=== PATIENT | male | born 1945 | race Caucasian/White ===

== ENCOUNTER 2019-05-30 07:59 | Day surgery (SDC) | payer MEDICARE, BC ==
[2019-05-30] VITALS (14 sets, daily range): BP systolic 95–117; BP diastolic 53–82; PULSE 64–74; TEMP 98–98.3
[~2019-05-30] VITALS: Ht 180.3 cm; Wt 115.2 kg
[~2019-05-30 07:59] MED LIST: ALDACTONE 25MG25 M1 PO; ASPIRIN E.C. 8181 MG PO; COREG 3.123.125 MG/T PO; COREG 6.256.25 MG/TA PO; HUMULIN R 10100 U/ML SQ; LANTUS100 U/ML SQ; LIPITOR 40MG TA40 MG PO; OMEGA-3 FISH1000 MG PO; PRINIVIL2.5 MG PO; RT ADVAIR 128 DISKUS IH
[2019-05-30 08:41] LABS: HEMATOCRIT 39.9 % (42.0-52.0); HEMOGLOBIN 13.2 g/dl (13.5-18.0); MEAN CELL VOLUME 99 fl (80.0-100.0); MEAN CORPUSCULAR HEMOGLOBIN 33 pg (27.0-31.0); MEAN CORPUSCULAR HGB CONC 33 g/dl (33.0-37.0); MEAN PLATELET VOLUME 9.6 fl (7.4-10.4); PLATELET COUNT 120 K/mm3 (130-400); RED BLOOD COUNT 4.02 M/mm3 (4.20-5.60); REDCELL DISTRIBUTION WIDTH-CV 15.4 % (11.5-14.5)
[2019-05-30 08:51] LABS: INR 1.3 (0.8-3.0); PROTHROMBIN TIME 15.4 SECONDS (9.7-12.8)
[2019-05-30 08:53] LABS: PARTIAL THROMBOPLASTIN TIME 34.7 SECONDS (26.0-37.0)
[2019-05-30 08:54] LABS: CREATININE, serum 1.01 (0.66-1.25); POTASSIUM 4.6 mmol/L (3.4-5.0)
[2019-05-30] MEDS ORDERED: DEMADEX 20MG20 M1 PO ×2 (09:03→11:18)
[2019-05-30] MEDS ORDERED: TYLENOL 500MG500 MG PO (09:04)
[2019-05-30] MEDS ORDERED: HUMALOG PEN100 U/ML SQ (09:17)
[2019-05-30] MEDS ORDERED: LANTUS SOLOS100 U/ML SQ (09:18)
[2019-05-30] MEDS ORDERED: COZAAR 25MG25 MG/TAB PO (09:19)
[2019-05-30] MEDS ORDERED: K-DUR20 MEQ PO (09:20)
[2019-05-30] MEDS ORDERED: ZADITOR 5 ML5 ML OP (09:32)
--- NOTE | 2019-05-30 10:04 | NUR ---
SEE MERGE REPORT FOR MEDICATION ADMINISTRATION TIMES WELL INTRA/POST SEDATION ASSESSMENTS.
--- NOTE | 2019-05-30 10:52 | NUR ---
Initial visit; Patient and his thanked Library Technology Instructor for offering encouragement and prayer prior to patient's surgical procedure.
[2019-05-30] MEDS ORDERED: ZEBETA 5MG5 MG PO ×3 (11:18→11:23)
--- NOTE | 2019-05-30 11:45 | NUR ---
Pt returned to [facility] 12 per bed s/p heart cath. Pt resting well, family at bedside.
--- NOTE | 2019-05-30 14:15 | NUR ---
Pt has voided 700 mL yellow urine and va PO intake s n/v.
[2019-05-30] MEDS ORDERED: ZITHROMAX Z PA250 MG PO (16:14)
--- NOTE | 2019-05-30 16:45 | NUR ---
Slight oozing noted on R groin dressing. Edges marked and report given to Spencer Sanders RN how assumed care at this time.
--- NOTE | 2019-05-30 17:55 | NUR ---
VSS. INT discontinued intact. Ambulated with steady gait.
--- NOTE | 2019-05-30 18:15 | NUR ---
Discharge instructions given. Transferred to private car by corie
== END 2019-05-30 18:15 | disposition home or self-care (01) ==
LOC: COL.CAR 07:59
PROVIDERS: Internal Medicine Cardiovascular Disease
DX: I25.110 Atherosclerotic heart disease of native coronary artery with unstable angina pectoris (principal); R94.39 Abnormal result of other cardiovascular function study; I25.5 Ischemic cardiomyopathy; I11.0 Hypertensive heart disease with heart failure; I50.22 Chronic systolic (congestive) heart failure; I47.2 Ventricular tachycardia; E11.9 Type 2 diabetes mellitus without complications; E78.2 Mixed hyperlipidemia; I48.0 Paroxysmal atrial fibrillation; Z88.0 Allergy status to penicillin; Z79.82 Long term (current) use of aspirin; Z79.4 Long term (current) use of insulin; Z87.891 Personal history of nicotine dependence; Z82.49 Family history of ischemic heart disease and other diseases of the circulatory system; Z80.9 Family history of malignant neoplasm, unspecified; Z95.1 Presence of aortocoronary bypass graft
CPT/HCPCS: C1760; C1769; C1894; J1644; J1940; J2250; J3010

== ENCOUNTER 2020-01-17 09:54 | Day surgery (SDC) | payer MEDICARE, BC ==
[~2020-01-17] VITALS: Ht 177.8 cm; Wt 106.0 kg
[~2020-01-17 09:54] MED LIST changes: +COZAAR 25MG25 MG/TAB PO; +DEMADEX 20MG20 M1 PO; +HUMALOG PEN100 U/ML SQ; +K-DUR20 MEQ PO; +LANTUS SOLOS100 U/ML SQ; +TYLENOL 500MG500 MG PO; +ZADITOR 5 ML5 ML OP; +ZEBETA 5MG5 MG PO; +ZITHROMAX Z PA250 MG PO
[2020-01-17 10:14] VITALS: BP 110/73; PULSE 80; TEMP 97.7
[2020-01-17] MEDS ORDERED: ZYLOPRIM 300MG300 MG PO (10:19)
[2020-01-17] MEDS ORDERED: DEMADEX 20MG20 M1 PO (10:20)
[2020-01-17] MEDS ORDERED: ALLEGRA 180MG180 MG PO (10:21)
[2020-01-17] MEDS ORDERED: ZEBETA 5MG5 MG PO (10:21)
[2020-01-17] MEDS ORDERED: HUMALOG PEN100 U/ML SQ (10:46)
[2020-01-17 13:27] VITALS: BP 97/57; PULSE 68; TEMP 97.3
--- NOTE | 2020-01-17 13:27 | NUR ---
The patient arrived back to [place] [facility] from the operating room at this time. The patient appears alert and oriented and denies any pain or nausea at this time. Vital signs were started at this time. Call light is within reach. is at his bedside at this time. The patient has two incisions were are covered with burger set and appear without redness or edema. The patient denies wanting anything to eat or drink at this time. Will continue to monitor the patient.
[2020-01-17 13:42] VITALS: BP 83/48; PULSE 59
--- NOTE | 2020-01-17 13:42 | NUR ---
The patient's blood sugar was rechecked with a result of 183. The patient appears alert and continues to deny any pain or nausea at this time. The patient requests to try some orange juice at this time. remains at his beside. Will continue to monitor the patient.
[2020-01-17 13:57] VITALS: BP 95/50; PULSE 59
--- NOTE | 2020-01-17 13:57 | NUR ---
The patient appeared to tolerate the orange juice well and denies wanting anything further to eat or drink at this time. The patient's vital signs appear stable. Will continue to monitor the patient.
[2020-01-17 14:12] VITALS: BP 91/56; PULSE 60
--- NOTE | 2020-01-17 14:12 | NUR ---
Discharge instructions were reviewed with the patient and his at this time. They both verbalized understanding and have no questions for the nurse at this time. The patient's IV to his left hand was removed and a pressure dressing was applied to the site. The nurse instructed the patient to get dressed and notify the staff when he is ready to be escorted out.
--- NOTE | 2020-01-17 14:25 | NUR ---
The patient was escorted out via wheelchair to a private vehicle by DICK Zavala. The patient's belongings and discharge paperwork were sent with him. The patient's is present to drive him home.
[2020-01-19] MEDS ORDERED: ALDACTONE 25MG25 M1 PO (13:11)
[2020-01-19] MEDS ORDERED: PREDNISONE20 MG PO ×2 (13:20→13:22)
== END 2020-01-17 14:25 | disposition home or self-care (01) ==
LOC: SDCO 09:54
DX: C85.98 Non-Hodgkin lymphoma, unspecified, lymph nodes of multiple sites (principal); I10 Essential (primary) hypertension; E11.9 Type 2 diabetes mellitus without complications; Z79.82 Long term (current) use of aspirin; Z79.891 Long term (current) use of opiate analgesic; Z79.51 Long term (current) use of inhaled steroids; Z79.4 Long term (current) use of insulin; Z80.0 Family history of malignant neoplasm of digestive organs; Z87.891 Personal history of nicotine dependence; Z88.0 Allergy status to penicillin; Z88.1 Allergy status to other antibiotic agents; Z11.59 Encounter for screening for other viral diseases
CPT/HCPCS: C1788; J0690; J1644; J2405; J2704; J3010; J7030

== ENCOUNTER → 2020-01-24 | Outpatient (CLI) | payer MEDICARE, BC ==
--- NOTE | 2020-01-23 14:08 | NUR ---
INSTRUCTED TO ONLY TAKEN THE [place] IN AM AND 4 UNITS OF HUMALOG IF BS >200, (THAT IS A 1/2 DOSE). HE CAN TAKEN THE REST OF HIS MEDS AFTER HE GETS HOME.
[2020-01-24] VITALS (7 sets, daily range): BP systolic 74–128; BP diastolic 31–76; PULSE 71–84
[~2020-01-24] VITALS: Ht 180.3 cm; Wt 104.0 kg
[~2020-01-24] MED LIST changes: +ALLEGRA 180MG180 MG PO; +PREDNISONE20 MG PO; +ZYLOPRIM 300MG300 MG PO
[2020-01-24 12:24] LABS: CSF APPEARANCE CLEAR; CSF COLOR COLORLESS; CSF MONONUCLEAR 63 % (70-100); CSF POLYMORPHONUCLEAR 37 % (0-6); CSF RBC 760 /mm3 (0-0)
== END ==
LOC: COL.RAD 01-23 09:15
PROVIDERS: Internal Medicine
DX: C83.39 Diffuse large B-cell lymphoma, extranodal and solid organ sites (principal); Z92.21 Personal history of antineoplastic chemotherapy
CPT/HCPCS: J9260

== ENCOUNTER 2020-01-26 12:09 | Inpatient (IN) | payer MEDICARE, BC ==
[~2020-01-26] VITALS: Ht 177.8 cm; Wt 106.8 kg
[2020-01-26] VITALS (256 sets, daily range): BP systolic 64–137; BP diastolic 38–126; PULSE 92–116; TEMP 98.5–101; O2SAT 53–100
[2020-01-26 13:51] LABS: HEMATOCRIT 37.9 % (42.0-52.0); HEMOGLOBIN 13.3 g/dl (13.5-18.0); MEAN CELL VOLUME 93 fl (80.0-100.0); MEAN CORPUSCULAR HEMOGLOBIN 33 pg (27.0-31.0); MEAN CORPUSCULAR HGB CONC 35 g/dl (33.0-37.0); MEAN PLATELET VOLUME 11.2 fl (7.4-10.4); RED BLOOD COUNT 4.06 M/mm3 (4.20-5.60); REDCELL DISTRIBUTION WIDTH-CV 14.4 % (11.5-14.5)
[2020-01-26 13:52] LABS: ALBUMIN 3.6 gm/dL (3.5-5.0); BILIRUBIN,TOTAL 3.7 mg/dL (0.0-1.0); CALCIUM 8.8 mg/dL (8.4-10.2); TOTAL PROTEIN 6.7 gm/dL (6.4-8.2)
[2020-01-26 14:38] LABS: PLATELET COUNT 38 K/mm3 (130-400)
[2020-01-26 14:44] LABS: EOSINOPHIL 20 % (0-4)
[2020-01-26 14:45] LABS: LYMPHOCYTE 80 % (20.0-51.0); PLATELET ESTIMATE DECREASED (NORMAL)
--- NOTE | 2020-01-26 16:00 | NUR ---
Upon arrival, pt AAOx4, appearing in good health for age with no complaints or symptoms. States "they took my temperature at the cancer center and everyone then got all excited and sent me to the ER. I feel fine, my blood pressure has been low my entire life". Call light in reach. Pt tolerting PO without difficulty Pt arrived with Levophed infusing to right antecubital IV, gtt switched to Red port on PICC line after placement confirmation by DICK Alejandra - [facility] site without complications
--- NOTE | 2020-01-26 18:19 | NUR ---
Vancomycin Initial Dosing Pharmacy Note Ordering provider: Adina Morin MD Indication/duration: neutropenic fever, septic shock Relevant comorbidities: lymphoma, DM LABS: WBC 0.2, TMax 101, SCr 1.0, CrCl 66 Recommendation: vancomycin 15 mg/kg Loading dose: 1.75 grams (given in ED) Maintenance dose: 1.5 grams every 12 hours Trough goal: 15-20 ug/mL. trough 7/ @ 1430
--- NOTE | 2020-01-26 20:00 | NUR ---
PATIENT DENIES DISCOMFORT WILL OCCASIONALLY FALL ASLEEP, WHEN LEFT ALONE, B/P CORRESPONDS BY BEING HYPOTENSIVE, MEDS ADMINISTERED ORDERED
[2020-01-27] VITALS (386 sets, daily range): BP systolic 66–119; BP diastolic 47–78; PULSE 86–108; TEMP 97.5–100.2; O2SAT 91–100
[2020-01-27 05:16] LABS: COLLECTION METHOD CLEAN CATCH
[2020-01-27 05:22] LABS: MEAN CELL VOLUME 92 fl (80.0-100.0); MEAN CORPUSCULAR HGB CONC 35 g/dl (33.0-37.0); MEAN PLATELET VOLUME 10.8 fl (7.4-10.4); REDCELL DISTRIBUTION WIDTH-CV 14.8 % (11.5-14.5)
[2020-01-27 05:24] LABS: HEMATOCRIT 31.4 % (42.0-52.0); MEAN CORPUSCULAR HEMOGLOBIN 32 pg (27.0-31.0); PLATELET COUNT 21 K/mm3 (130-400)
[2020-01-27 05:30] LABS: MUCOUS Present /lpf; PH 6 (5-8); SQUAMOUS EPITHELIAL 0-2 /hpf; URINE APPEARANCE Clear; URINE BACTERIA None Seen /hpf; URINE BILIRUBIN Negative (NEGATIVE); URINE BLOOD 2+ (NEGATIVE); URINE COLOR Amber; URINE GLUCOSE Negative (NEGATIVE); URINE KETONE Negative (NEGATIVE); URINE LEUKOCYTE ESTERASE Negative (NEGATIVE); URINE NITRATE Negative (NEGATIVE); URINE PROTEIN(semi-quant) 1+ (NEGATIVE); URINE RBC 0-2 /hpf
[2020-01-27 05:34] LABS: CALCIUM 7.5 mg/dL (8.4-10.2); CREATININE, serum 0.91 (0.66-1.25)
[2020-01-27 05:48] LABS: TROPONIN-I 0.539 ng/mL (0.000-0.035)
[2020-01-27 06:14] LABS: ANISOCYTOSIS 1+; BAND 2 % (0-10); LYMPHOCYTE 92 % (20.0-51.0); NEUTROPHILS 6 % (42.0-75.2); OVALOCYTES 1+; PLATELET ESTIMATE DECREASED (NORMAL)
--- NOTE | 2020-01-27 08:00 | NUR ---
Shift assessment complete at this time. Plan of care reviewed at bedside with patient. Additional time taken to address any other needs or concerns. Vitals stable at this time. Pt denies pain or any other discomforts. Bed in low position, call light within reach, will continue to monitor.
--- NOTE | 2020-01-27 10:22 | NUR ---
SW's met with patient to complete intake. Patient states that he lives in [place], [place] with his Sujata [phone]. He states that he does not utilize any DME and does not need assistance with ADL's. PCP is Flaca Knapp. He states that he obtains his medications from [facility] and has not difficulties affording medications. Patient's advance directives are listed in EMR. Patient's DPOA-HC is Sujata. Patient plans to return home with is upon discharge. SW to ask for PT\OT to be ordered. SW to continue to follow as needed.
--- NOTE | 2020-01-27 12:00 | NUR ---
Pt resting comfortably in bed. Denies pain or any other discomforts. Vitals stable at this time while weaning down norepinephrine gtt. Bed in low position, call light within reach, will continue to monitor.
--- NOTE | 2020-01-27 16:00 | NUR ---
Pt resting comfortably in bed. Denies pain or any other discomforts. Vitals stable at this time. Bed in low position, call light within reach, will continue to monitor.
--- NOTE | 2020-01-27 19:30 | NUR ---
Assisted up to bedside commode; patient had medium loose stool. Denies any pain or shortness of breath during assessment. Denies any complaints at this time. Will continue to monitor.
[2020-01-28] VITALS (185 sets, daily range): BP systolic 86–112; BP diastolic 53–85; PULSE 89–103; TEMP 97.5–98.7; O2SAT 72–100
--- NOTE | 2020-01-28 04:30 | NUR ---
Resting comfortably in bed; denies any concernsn or complaints at this time.
[2020-01-28 05:55] LABS: MEAN CELL VOLUME 93 fl (80.0-100.0); MEAN CORPUSCULAR HGB CONC 35 g/dl (33.0-37.0); RED BLOOD COUNT 2.96 M/mm3 (4.20-5.60); REDCELL DISTRIBUTION WIDTH-CV 14.8 % (11.5-14.5)
[2020-01-28 06:05] LABS: CALCIUM 7.2 mg/dL (8.4-10.2); CREATININE, serum 0.84 (0.66-1.25); HEMATOCRIT 27.4 % (42.0-52.0); HEMOGLOBIN 9.5 g/dl (13.5-18.0); MEAN CORPUSCULAR HEMOGLOBIN 32 pg (27.0-31.0); PLATELET COUNT 12 K/mm3 (130-400); POTASSIUM 3.3 mmol/L (3.4-5.0)
--- NOTE | 2020-01-28 06:23 | NUR ---
Notified Lillian regarding Potassium level this am. Provider to put in K+ replacement orders.
[2020-01-28 06:40] LABS: EOSINOPHIL 4 % (0-4); LYMPHOCYTE 44 % (20.0-51.0); MYELOCYTE 8 % (0-0); NEUTROPHILS 8 % (42.0-75.2)
[2020-01-28 06:41] LABS: BURR CELLS 4+; PLATELET ESTIMATE DECREASED (NORMAL)
--- NOTE | 2020-01-28 08:00 | NUR ---
REDNESS, ERYTHEMA, EDEMA NOTED TO LEFT UPPER, POSTERIOR ARM BEGINNING NEAR AC PERIPHERAL IV EXTENDING UP TO LEFT AXILLA. IV DISCONTINUED.
--- NOTE | 2020-01-28 11:32 | NUR ---
REDDENED ERYTHEMATOUS AREA TO POSTERIOR LEFT UPPER ARM ELEVATED, WARM COMPRESS APPLIED. REDDENED AREA MARKED.
--- NOTE | 2020-01-28 14:30 | NUR ---
SPOKE WITH BLOOD BANK AND DR CARR. BB HAS 2 O+ PLATELETS IN HOUSE BUT PATIENT IS A NEGATIVE. PROVIDER WOULD PREFER PT TO RECEIVE TYPE SPECIFIC D/T NEUTROPENIA. GAVIN IN BB STATES HE WILL ORDER TYPE SPECIFIC PLATELETS AND SHOULD ARRIVE BEFORE TOMORROW AM AT 11.
--- NOTE | 2020-01-28 18:30 | NUR ---
REPORT GIVEN TO ANGEL JENNINGS ON SURGICAL UNIT. PT TRANSPORTED VIA WHEELCHAIR TO ROOM 325. PT'S BELONGINGS TRANSFERRED WITH PATIENT. CONTACT MADE WITH ANGEL UPON TRANSFER.
--- NOTE | 2020-01-28 20:00 | NUR ---
Report received, assumed care for shift manager. Assessment complete. A&Ox3. Denies pain/shortness of breath/nausea. PICC to right upper arm flushes without difficulty. Left upper arm with redness/warmth-has been marked. States its sore but not to painful-requesting tylenol at HS. Plan of care discussed for this shift to include pain control/need for stool specimen/transfusions in AM. Verbalizes understanding-denies questions/concerns. Call light in reach. Will monitor.
--- NOTE | 2020-01-28 21:50 | NUR ---
Called requesting PRN tylenol for pain to left upper extremity-rating pain 3/10 on pain scale-described as constant ache. Elevated on pillow with heat pack. Will monitor.
[2020-01-29] VITALS (12 sets, daily range): BP systolic 96–108; BP diastolic 53–74; PULSE 46–101; TEMP 97.9–98.9
--- NOTE | 2020-01-29 00:10 | NUR ---
Resting eyes closed-audible snore. NO s/s of pain noted.
--- NOTE | 2020-01-29 05:43 | NUR ---
Rested well this shift. C/O pain to left upper extremity and received tylenol with good pain control. Left upper ext elevated on pillow with PRN heat pack. Did get up to commode x1-x large liquid stool-brown in color. No c/o at this time. Call light in reach. Will monitor.
--- NOTE | 2020-01-29 07:35 | NUR ---
Lying in bed with eyes open. Denies pain. Has some soreness in left arm where he has some swelling and would like some Tylenol to assist in keeping the arm from becoming painful. Assisted up to BSC. Returns to bed. Denies additional needs at this time.
[2020-01-29 09:19] LABS: MEAN CELL VOLUME 94 fl (80.0-100.0); MEAN CORPUSCULAR HGB CONC 35 g/dl (33.0-37.0); RED BLOOD COUNT 2.76 M/mm3 (4.20-5.60); REDCELL DISTRIBUTION WIDTH-CV 15.1 % (11.5-14.5)
[2020-01-29 09:21] LABS: HEMATOCRIT 25.8 % (42.0-52.0); HEMOGLOBIN 8.9 g/dl (13.5-18.0); MEAN CORPUSCULAR HEMOGLOBIN 32 pg (27.0-31.0); PLATELET COUNT 11 K/mm3 (130-400)
[2020-01-29 09:31] LABS: CALCIUM 7.4 mg/dL (8.4-10.2); CREATININE, serum 0.69 (0.66-1.25); POTASSIUM 3.5 mmol/L (3.4-5.0)
--- NOTE | 2020-01-29 09:45 | NUR ---
Reviewed consent with the patient for platelet administration. Patient denies questions and signs consent. Consent placed on chart. NICO Curiel, notified of WBC and platelet lab levels.
--- NOTE | 2020-01-29 11:31 | NUR ---
Lying in bed with eyes open. Denies pain. Called lab to check status of platelets and the [facility] has not dropped off the platelets at this time. Patient updated. Denies any needs at this time.
[2020-01-29 11:39] LABS: BAND 8 % (0-10); HYPOCHROMIA 1+; LYMPHOCYTE 44 % (20.0-51.0); NEUTROPHILS 40 % (42.0-75.2); OVALOCYTES 1+; PLATELET ESTIMATE DECREASED (NORMAL)
--- NOTE | 2020-01-29 13:33 | NUR ---
Platelet transfusion started at this time. Lab explains that they only received the one unit of platelets and the [facility] is trying to locate one more unit. Patient lying in bed with eyes open. DICK Zarate, verifies platelets with this nurse.
[2020-01-29 14:26] LABS: CLOSTRIDIUM DIFF A/B NEG; CLOSTRIDIUM DIFF A/B INTERP No C.diff present
--- NOTE | 2020-01-29 15:51 | NUR ---
Platelet transfusion complete. Vitals stable. Patient says that he feels good and denies any additional needs at this time.
--- NOTE | 2020-01-29 17:00 | NUR ---
Lying in bed with eyes open. Denies pain at this time. Stools are still loose but thicker in consistency. Patient denies pain or further needs at this time.
--- NOTE | 2020-01-29 20:10 | NUR ---
Assessment complete. Resting in bed. C/O LUE discomfort/pain r/t cellulitis, requests PRN acetaminophen. Denies other needs at this time.
[2020-01-30 00:51] VITALS: BP 132/71; PULSE 70; TEMP 98.1
[2020-01-30 04:23] VITALS: BP 104/51; PULSE 87; TEMP 98.5
[2020-01-30 06:24] LABS: CLOSTRIDIUM DIFF A/B NEG; CLOSTRIDIUM DIFF A/B INTERP No C.diff present
[2020-01-30 07:57] VITALS: BP 105/71; PULSE 93; TEMP 98.1
[2020-01-30 11:15] LABS: MEAN CELL VOLUME 92 fl (80.0-100.0); MEAN CORPUSCULAR HGB CONC 36 g/dl (33.0-37.0); MEAN PLATELET VOLUME 11.8 fl (7.4-10.4); RED BLOOD COUNT 2.88 M/mm3 (4.20-5.60); REDCELL DISTRIBUTION WIDTH-CV 15.2 % (11.5-14.5)
[2020-01-30 11:17] LABS: CALCIUM 7.8 mg/dL (8.4-10.2); CREATININE, serum 0.71 (0.66-1.25); POTASSIUM 4.1 mmol/L (3.4-5.0)
[2020-01-30 11:25] LABS: HEMATOCRIT 26.5 % (42.0-52.0); HEMOGLOBIN 9.4 g/dl (13.5-18.0); MEAN CORPUSCULAR HEMOGLOBIN 33 pg (27.0-31.0)
[2020-01-30 11:28] VITALS: BP 95/47; PULSE 90; TEMP 98.2
[2020-01-30 11:36] LABS: PLATELET COUNT 30 K/mm3 (130-400)
[2020-01-30 13:29] LABS: ANISOCYTOSIS 1+; HYPOCHROMIA 1+; PLATELET ESTIMATE DECREASED (NORMAL)
[2020-01-30 13:53] LABS: BAND 20 % (0-10); NEUTROPHILS 12 % (42.0-75.2)
[2020-01-30 13:54] LABS: LYMPHOCYTE 60 % (20.0-51.0)
--- NOTE | 2020-01-30 14:20 | NUR ---
Water Well Driller attended clinical rounds with the team then followed up with patient on discharge plan. Patient still plans to return home at discharge. PT/OT ordered. SW will continue to follow.
[2020-01-30 15:49] VITALS: BP 103/63; PULSE 89; TEMP 98.1
--- NOTE | 2020-01-30 18:25 | NUR ---
Patient has done well throughout the day. Has been up to recliner throughout most of the day, transfers with 1 assist to comode/chair. Tylenol given throughou the day for left arm pain. Cellulitis to LUE, patient states is better than previous days as it is no longer weeping. PICC line to JADON now working without complications, unable to draw blood from line this AM. Notified picc RN and Dr. Morin, cathflow administered this afternoon. Edema noted to BLE and BUE, patient states better than previous days. Denies further needs at this time. Will report off to shift manager.
--- NOTE | 2020-01-30 19:45 | NUR ---
SCHEDULED ANTIBIOTIC GIVEN. RT PICC FLUSHED HARD, EVENTUALLY BLOOD RETURN WAS SEEN. LEFT UPPER ARM REMAINS REDDENED AND WARM TO TOUCH. PT REPORTS LESS SWELLING. HAS A RT PORTACATH ACCESSED BUT CURRENTLY NOT USING. IS ALERT AND ORIENTED X4.
[2020-01-30 20:11] VITALS: BP 102/60; PULSE 95; TEMP 99.1
--- NOTE | 2020-01-30 21:36 | NUR ---
HS MEDS GIVEN INCLUDES LEVEMIR INSULIN 35 UNITS WITH SNACK.
[2020-01-31] VITALS (7 sets, daily range): BP systolic 88–132; BP diastolic 52–70; PULSE 90–95; TEMP 97.3–98.8
--- NOTE | 2020-01-31 01:08 | NUR ---
UP IN CHAIR AT BEDSIDE. NO CONCERNS AT THIS TIME.
--- NOTE | 2020-01-31 01:38 | NUR ---
MEDICATED WITH TYLENOL 650MG PO FOR GENERAL DISCOMFORT. RT PICC WORKING WELL, IV ANTIBIOTIC GIVEN WITH GOOD BLOOD RETURN NOTED.
--- NOTE | 2020-01-31 05:00 | NUR ---
PT BACK IN BED.
[2020-01-31 07:36] LABS: MEAN CELL VOLUME 94 fl (80.0-100.0); MEAN CORPUSCULAR HGB CONC 34 g/dl (33.0-37.0); MEAN PLATELET VOLUME 13.1 fl (7.4-10.4); PLATELET COUNT 57 K/mm3 (130-400); RED BLOOD COUNT 2.78 M/mm3 (4.20-5.60); REDCELL DISTRIBUTION WIDTH-CV 15.3 % (11.5-14.5)
[2020-01-31 07:37] LABS: CALCIUM 7.6 mg/dL (8.4-10.2); CREATININE, serum 0.67 (0.66-1.25); POTASSIUM 3.8 mmol/L (3.4-5.0)
[2020-01-31 07:46] LABS: HEMATOCRIT 26.1 % (42.0-52.0); HEMOGLOBIN 8.9 g/dl (13.5-18.0); MEAN CORPUSCULAR HEMOGLOBIN 32 pg (27.0-31.0)
--- NOTE | 2020-01-31 08:30 | NUR ---
Patient in bed resting. Alert and oriented x 3. Assessment complete. Redness to LUE noted. Edema to BLE. Picc line to JADON without complications. Tylenol given for aching pain to LUE. Denies further needs at this time.
[2020-01-31 08:40] LABS: PATHOLOGY DIFF REVIEW OK +
[2020-01-31 09:32] LABS: ANISOCYTOSIS 1+; BAND 12 % (0-10); EOSINOPHIL 4 % (0-4); LYMPHOCYTE 30 % (20.0-51.0); METAMYELOCYTE 8 % (0-0); MYELOCYTE 2 % (0-0); NEUTROPHILS 36 % (42.0-75.2); NUCLEATED RED BLOOD CELL 8 (0-6)
[2020-01-31 09:33] LABS: PLATELET ESTIMATE DECREASED (NORMAL)
--- NOTE | 2020-01-31 11:20 | NUR ---
Contacted Veena WALSH about low NA. Patient educated on no free water.
--- NOTE | 2020-01-31 19:27 | NUR ---
Patient has done well throughout the day. Has been up to recliner for all meals. Tylenol given per orders for left arm pain. Minimal needs. Patient called family and updated them about status. Denies further needs at this time. Will rpeort off to welder 2nd shift.
--- NOTE | 2020-01-31 20:00 | NUR ---
Pt. sitting up in chair at this time. Pt. is A&OX3, assessment complete. PICC to rt. upper arm patent. Pt. denies pain or other needs at this time. Call light within reach.
[2020-02-01 04:49] VITALS: BP 99/62; PULSE 90; TEMP 98.3
[2020-02-01 06:38] LABS: MEAN CELL VOLUME 94 fl (80.0-100.0); MEAN CORPUSCULAR HGB CONC 34 g/dl (33.0-37.0); MEAN PLATELET VOLUME 10.8 fl (7.4-10.4); PLATELET COUNT 138 K/mm3 (130-400); RED BLOOD COUNT 2.94 M/mm3 (4.20-5.60)
[2020-02-01 06:44] LABS: HEMATOCRIT 27.7 % (42.0-52.0); HEMOGLOBIN 9.5 g/dl (13.5-18.0); MEAN CORPUSCULAR HEMOGLOBIN 32 pg (27.0-31.0)
[2020-02-01 06:48] LABS: CALCIUM 7.7 mg/dL (8.4-10.2); CREATININE, serum 0.65 (0.66-1.25); POTASSIUM 3.8 mmol/L (3.4-5.0)
--- NOTE | 2020-02-01 07:19 | NUR ---
Lying in bed with eyes open. Denies pain. Swelling and redness to left arm very minimal and patient says that it does not hurt like it did. Patient says that he is feeling much better. Denies needs at this time.
[2020-02-01 07:58] VITALS: BP 104/58; PULSE 97; TEMP 97.9
[2020-02-01 08:14] LABS: BAND 23 % (0-10); EOSINOPHIL 1 % (0-4); LYMPHOCYTE 10 % (20.0-51.0); METAMYELOCYTE 23 % (0-0); NEUTROPHILS 26 % (42.0-75.2); NUCLEATED RED BLOOD CELL 7 (0-6)
[2020-02-01 08:15] LABS: ANISOCYTOSIS 1+
[2020-02-01 08:26] LABS: PATHOLOGY DIFF REVIEW OK
--- NOTE | 2020-02-01 09:23 | NUR ---
Having soreness in left arm and would like Tylenol. Tylenol administered as prescribed. Patient sitting up in chair. Denies additional needs at this time.
--- NOTE | 2020-02-01 10:06 | NUR ---
Patient assisted up to bathroom, gait steady. Has medium soft, formed BM. Returns to bed at this time. Denies any needs.
[2020-02-01] MEDS ORDERED: CIPRO 500MG TA500 MG PO (11:03)
[2020-02-01 11:05] VITALS: BP 101/54; PULSE 101; TEMP 97.7
--- NOTE | 2020-02-01 12:30 | NUR ---
Reviewed discharge instructions with the patient and his daughter Laura (on speaker phone). Questions answered. Patient and daughter verbalize understanding and patient signs all discharge documents. Daughter will notify patient when they are here to pick him up and at what grain picker location they are at. Patient lying in bed at this time. Denies any additional needs.
--- NOTE | 2020-02-01 12:49 | NUR ---
Slitting And Shipping Supervisor attended clinical rounds with the team and patient to discharge home today. SW followed up with patient to discuss Home Health services. SW provided list of HH agencies that serve [place], but patient declined and states he is not interested in HH at this time. SW read IM form aloud to patient who verbalized understanding then provided verbal consent as signature. SW placed form in chart and provided copy to patient. No additional needs at this time.
--- NOTE | 2020-02-01 14:36 | NUR ---
Patient calls and explains that his and daughter are here to pick him up. Patient taken out to POV via wheel chair with belongings.
== END 2020-02-01 14:40 | disposition home or self-care (01) | DRG 871 ==
LOC: COL.ER 12:09 → ICU 14:04 → SURG 14:04
PROVIDERS: Emergency Medicine; Internal Medicine Infectious Disease; Physician Assistant; ADMIT Student in an Organized Health Care Education/Training Program
DX: A41.59 Other Gram-negative sepsis (principal); R65.21 Severe sepsis with septic shock; I21.A1 Myocardial infarction type 2; D61.810 Antineoplastic chemotherapy induced pancytopenia; I50.21 Acute systolic (congestive) heart failure; I42.9 Cardiomyopathy, unspecified; C85.90 Non-Hodgkin lymphoma, unspecified, unspecified site; L03.114 Cellulitis of left upper limb; K57.32 Diverticulitis of large intestine without perforation or abscess without bleeding; E87.1 Hypo-osmolality and hyponatremia; I25.10 Atherosclerotic heart disease of native coronary artery without angina pectoris; Z95.1 Presence of aortocoronary bypass graft; Z95.810 Presence of automatic (implantable) cardiac defibrillator; Z88.0 Allergy status to penicillin; T45.1X5A Adverse effect of antineoplastic and immunosuppressive drugs, initial encounter; R50.81 Fever presenting with conditions classified elsewhere; D69.59 Other secondary thrombocytopenia; E11.9 Type 2 diabetes mellitus without complications; R74.0 Nonspecific elevation of levels of transaminase and lactic acid dehydrogenase [LDH]; Z79.4 Long term (current) use of insulin
CPT/HCPCS: 99223-AI; 99231-AI; 99232-AI; 99233-AI; 99239; C1751; C1892; J0692; J1447; J1815; J2997; J3370; J3480; J7030; J7040; J7050; J7060; P9037; Q9967

== ENCOUNTER 2020-02-13 07:02 | Outpatient (CLI) | payer MEDICARE, BC ==
[~2020-02-13] VITALS: Ht 177.8 cm; Wt 110.0 kg
[~2020-02-13 07:02] MED LIST changes: +CIPRO 500MG TA500 MG PO
[2020-02-13] MEDS ORDERED: ZEBETA 5MG5 MG PO (07:17)
[2020-02-13] MEDS ORDERED: COZAAR 25MG25 MG/TAB PO (07:18)
[2020-02-13] MEDS ORDERED: DEMADEX5 MG PO (07:21)
[2020-02-13] MEDS ORDERED: ALDACTONE 25MG25 M1 PO (07:22)
[2020-02-13] MEDS ORDERED: PREDNISONE20 MG PO (07:23)
[2020-02-13 07:25] VITALS: BP 101/73; PULSE 124
[2020-02-13 08:35] VITALS: BP 108/98; PULSE 107
--- NOTE | 2020-02-13 08:35 | NUR ---
This is pt's 2nd cycle of chemotherapy with intrathecal methotrexate. Orders were reviewed with pharmacists Angela Roach and Vaughn Andrade and drug was verified correct again by comparing printed label with printed order. Again it was reviewed with Dr Choi and this nurse prior to instillation. Pt tolerated well and was sent for brief recovery stay before returning home.
[2020-02-13 08:41] VITALS: BP 108/98; PULSE 107
--- NOTE | 2020-02-13 08:42 | NUR ---
Report from Rosario JENNINGS. Danni to back CD&I. Denies pain and needs at this time
[2020-02-13 08:56] VITALS: BP 108/70; PULSE 104
[2020-02-13 09:11] VITALS: BP 104/67; PULSE 101
[2020-02-13 09:57] VITALS: BP 106/65; PULSE 103
--- NOTE | 2020-02-13 09:57 | NUR ---
Ok to discharge per Dr. Escoto. Discharge instructions given. Transferred to private car by
[2020-02-13 10:18] LABS: CSF APPEARANCE HAZY; CSF COLOR YELLOW; CSF MONONUCLEAR 3 % (70-100); CSF POLYMORPHONUCLEAR 97 % (0-6); CSF RBC 74700 /mm3 (0-0)
== END 2020-02-13 09:58 | disposition home or self-care (01) ==
LOC: COL.RAD 07:02
PROVIDERS: Internal Medicine
DX: C83.39 Diffuse large B-cell lymphoma, extranodal and solid organ sites (principal)
CPT/HCPCS: J9260

== ENCOUNTER 2020-03-05 07:07 | Outpatient (CLI) | payer MEDICARE, BC ==
[2020-03-05] VITALS (8 sets, daily range): BP systolic 88–123; BP diastolic 65–82; PULSE 86–116
[~2020-03-05] VITALS: Ht 177.8 cm; Wt 103.0 kg
[~2020-03-05 07:07] MED LIST changes: +B-12 500 MCG PO; +DEMADEX5 MG PO; +NATURAL IRON65 MG PO
--- NOTE | 2020-03-05 09:57 | NUR ---
Pt free of complaints at discharge. He states low blood pressures are not unusual for him, and he is able to transfer and change positions without difficulty or dizziness. DC instructions reviewed with pt prior to discharge, he expresses understanding. He is assisted by wheelchair to sister's car for ride home.
[2020-03-05 12:57] LABS: CSF APPEARANCE CLEAR; CSF COLOR COLORLESS; CSF RBC 2 /mm3 (0-0)
[2020-03-05 12:58] LABS: CSF MONONUCLEAR 80 % (70-100); CSF POLYMORPHONUCLEAR 20 % (0-6)
== END 2020-03-05 09:55 | disposition home or self-care (01) ==
LOC: COL.RAD 07:07
PROVIDERS: Internal Medicine
DX: C83.39 Diffuse large B-cell lymphoma, extranodal and solid organ sites (principal)
CPT/HCPCS: J9260

== ENCOUNTER 2020-03-26 12:17 | Outpatient (CLI) | payer MEDICARE, BC ==
[2020-03-26 13:00] VITALS: BP 104/76; PULSE 113
[2020-03-26 14:10] VITALS: BP 103/74; PULSE 96
[2020-03-26 14:25] VITALS: BP 102/74; PULSE 81
--- NOTE | 2020-03-26 14:25 | NUR ---
Received report from Rosario Razo to back CD&I. VSS
--- NOTE | 2020-03-26 14:26 | NUR ---
Chemotherapy precautions and protocal used with administration of methotrexate by radiologist after lumbar puncture. Drug verified correct with printed order with Trista JENNINGS in radiology. This is #4 injection and pt is reporting fatigue but otherwise he feels he is doing well.
[2020-03-26 14:55] VITALS: BP 104/72; PULSE 79
[2020-03-26 15:11] LABS: CSF APPEARANCE CLEAR; CSF COLOR COLORLESS
[2020-03-26 15:12] LABS: CSF RBC 4 /mm3 (0-0)
[2020-03-26 15:25] VITALS: BP 102/70; PULSE 77
[2020-03-26 15:36] LABS: CSF MONONUCLEAR 0 % (70-100); CSF POLYMORPHONUCLEAR 100 % (0-6)
[2020-03-26 15:53] VITALS: BP 106/72; PULSE 78
--- NOTE | 2020-03-26 15:53 | NUR ---
VSS. Discharge instructions given. Transferred to private car by corie
== END 2020-03-26 15:53 | disposition home or self-care (01) ==
LOC: COL.RAD 12:17
PROVIDERS: Internal Medicine
DX: C85.90 Non-Hodgkin lymphoma, unspecified, unspecified site (principal)
CPT/HCPCS: J9260

== ENCOUNTER 2020-04-18 11:52 | Outpatient (CLI) | payer MEDICARE, BC ==
[~2020-04-18] VITALS: Ht 177.8 cm; Wt 106.6 kg
[2020-04-18] VITALS (8 sets, daily range): BP systolic 85–116; BP diastolic 65–84; PULSE 91–110
[2020-04-18 14:09] LABS: CSF APPEARANCE CLEAR; CSF COLOR COLORLESS; CSF RBC 69 /mm3 (0-0)
[2020-04-18 14:24] LABS: CSF MONONUCLEAR 75 % (70-100); CSF POLYMORPHONUCLEAR 25 % (0-6)
== END 2020-04-18 15:18 | disposition home or self-care (01) ==
LOC: COL.RAD 11:52
PROVIDERS: Internal Medicine
DX: C83.39 Diffuse large B-cell lymphoma, extranodal and solid organ sites (principal); Z92.21 Personal history of antineoplastic chemotherapy
CPT/HCPCS: J9260

== ENCOUNTER 2020-04-24 14:30 | Outpatient (RCR) | payer MEDICARE, BC ==
[2020-04-24] VITALS (12 sets, daily range): BP systolic 81–123; BP diastolic 55–79; PULSE 82–102; TEMP 98–98.2
[~2020-04-24] VITALS: Ht 177.8 cm; Wt 115.5 kg
--- NOTE | 2020-04-24 18:33 | NUR ---
Flushed PAC with heparin and de-accessed. Bandaid applied to site.
== END 2020-04-24 18:38 | disposition home or self-care (01) ==
LOC: EUO 14:30
DX: Z01.89 Encounter for other specified special examinations (principal)
CPT/HCPCS: J7050; P9037; P9040